=== PATIENT | male | born 1955 | race Hispanic/Latino ===

== ENCOUNTER → 2025-07-19 | Day surgery (SDC) | payer OTHER ==
[~2025-07-19] MED LIST: ABILIFY5 MG PO; LIDOCAINE HCL 2% LOCAL INJ 5 ML SDV VIAL INJ ONE; MIDAZOLAM HCL 2 MG/2 ML VIAL ONE; PROPOFOL IV EMULSION 10 MG/ML 20 ML VIAL ONE; TRAZODONE HCL50 MG PO
[2025-07-19] MEDS: LACTATED RINGER'S 1,000 ML ONE (12:25)
[2025-07-19 12:32] LABS: BASOPHILS % 0.6 % (0.0-1.0); EOSINOPHILS % 1.0 % (0.0-6.0); LYMPHOCYTES % 44.7 % (18.0-39.1); MONOCYTES % 6.9 % (4.4-11.3); NEUTROPHILS % 46.7 % (38.7-80.0); RED CELL DISTRIBUTION WIDTH 13.4 % (11.7-14.4)
[2025-07-19 14:10] VITALS: TEMP 97.9
[2025-07-19 14:40] VITALS: BP 129/82; PULSE 59; RESP 16; O2SAT 96
== END | disposition home or self-care (01) ==
LOC: OR 10:48
PROVIDERS: ATTEND Internal Medicine Gastroenterology
DX: K59.00 Constipation, unspecified (principal); K64.8 Other hemorrhoids; K57.30 Diverticulosis of large intestine without perforation or abscess without bleeding; N40.0 Benign prostatic hyperplasia without lower urinary tract symptoms; F41.9 Anxiety disorder, unspecified; R00.1 Bradycardia, unspecified; I45.4 Nonspecific intraventricular block; Z01.810 Encounter for preprocedural cardiovascular examination; Z79.899 Other long term (current) drug therapy
CPT/HCPCS: 36415; 45378; 85025; 93005; J2003; J2250